=== PATIENT | female | born 1960 | race Caucasian/White ===

== ENCOUNTER 2020-11-09 12:40 | Outpatient (CLI) | payer BC, SELFPAY ==
--- NOTE | 2020-11-09 12:57 | MM_ITS ---
WS: [id number] Bilateral screening digital mammogram, 11/09/2020 Clinical Data: SCREEN Comparison: None. Findings: The breast parenchymal pattern shows heterogeneous density No spiculated masses or clustered calcific ations are seen. There are no secondary signs of carcinoma. MM/[id number] Impression: 1. Negative bilateral mammogram unchanged. 2. Recommend annual screening mammograms. BIRADS: 1-Negative FOLLOW UP: 1 Year Follow-up The CAD fitting room checker was used.
== END 2020-11-09 12:41 | disposition home or self-care (01) ==
PROVIDERS: PCP Family Medicine; Visit Provider Family Medicine
DX: Z12.31 Encounter for screening mammogram for malignant neoplasm of breast (principal)
CPT/HCPCS: 77067

== ENCOUNTER → 2021-08-31 09:06 | Outpatient (BNVA) | payer BC, SELFPAY | PROVIDERS: PCP Family Medicine; Visit Provider Obstetrics & Gynecology | DX: N39.3 Stress incontinence (female) (male) (principal); N81.9 Female genital prolapse, unspecified; Z20.822 Contact with and (suspected) exposure to COVID-19 | CPT/HCPCS: 87635 ==

== ENCOUNTER 2021-09-05 10:50 | Observation (INO) | payer BC, SELFPAY ==
[2021-08-31 10:30] VITALS: BMI 21.1
--- NOTE | 2021-08-31 10:53 | ANES.PREANE2 ---
Pre-Anesthetic Assessment Pre-Anesthetic Assessment: Height/Weight: Height 1.7 m Weight 61.235 kg Proposed Procedure: Operation Date: 09/05/21 12:00 Proposed Procedures p Sacrospinous Ligament Suspension 51689 [id number] N39.3 N81.9(Not Applicable) - Tahir Navarrete MD s Sling(Not Applicable) - Tahir Navarrete MD s Perineorrhaphy(Not Applicable) - Tahir Navarrete MD Was Beta Parker taken within 24 hours: N/A Was Clonidine taken within 24 hours: N/A Social: Social History: No alcohol and No tobacco Exam: Pre-Anes Outpt Exam: alert, oriented x 3, clear to auscultation bilaterally and regular rate & rhythm Airway: Submandibular: WNL Cervical ROM: WNL MP: 2 Dentition: Full History/ROS: No significant history except as noted Anesthetic Plan: ASA status: 1 Anesthesia: General Risk of > 500 ml blood loss (7ml/kg in children): No PFSH Anesthesia PFSH: Medical History No pertinent past medical history Surgical History H/O right knee surgery H/O: hysterectomy Family History Father Diabetes Stroke Denies family history of CAD (coronary artery disease) Clotting disorder Hyperlipidemia Chronic kidney disease (CKD) Bleeding disorder Cancer Hypertension Thyroid disease Data Anesthesia Cardiac Studies: No Data to Display
[2021-08-31 11:04] LABS: Basophils # 0.1 10^3/uL (0.0-0.1); Basophils % 0.8 %; Eosinophils % 0.6 %; Hematocrit 40.1 % (37.0-47.0); Hemoglobin 13.3 g/dL (11.5-15.3); Lymphocytes # 1.5 10^3/uL (0.8-4.8); Lymphocytes % 22.6 %; Mean Corpuscular HGB Conc 33.2 g/dL (30.0-36.0); Mean Corpuscular Hemoglobin 31.3 pg (28.0-34.0); Mean Corpuscular Volume 94.4 fl (81-99); Monocytes # 0.5 10^3/uL (0.2-0.9); Monocytes % 7.2 %; Neutrophils # 4.54 10^3/uL (1.8-7.7); Neutrophils % 68.5 %; Nucleated Red Blood Cells % 0 %; Platelet Count 307 10^3/cmm (130-400); Red Blood Count 4.25 10^6/uL (4.1-5.3); Red Cell Distribution Width 13.2 % (12.1-15.1); White Blood Count 6.6 10^3/uL (4.0-10.0)
[2021-08-31 11:18] LABS: Anion Gap 19.2 (5-19); Blood Urea Nitrogen 6 mg/dL (8-23); Calcium 9.9 mg/dL (8.5-10.5); Carbon Dioxide 24 mmol/L (22-29); Chloride 94 mmol/L (98-107); Glomerular Filtration Rate 162.8 mL/min (90-130); Glucose 82 mg/dL (65-115); Osmolality Calculated 273 mOsm/kg (285-295); Potassium 4.2 mmol/L (3.5-5.1); Sodium 133 mmol/L (136-145)
[2021-09-05] VITALS (14 sets, daily range): BP systolic 131–156; BP diastolic 80–119; PULSE 83–109; RESP 9–18; TEMP 36.2–37.1; O2SAT 95–98
[2021-09-05] MEDS: sodium chloride 0.9% 500 ML IV (07:39)
[2021-09-05] MEDS: scopolamine 1.5 Patch 1 PATCH TRANSDERMA (07:49)
[2021-09-05 07:53] LABS: Basophils % 0.8 %; Eosinophils # 0.2 10^3/uL (0.0-0.8); Eosinophils % 3.4 %; Hematocrit 40.4 % (37.0-47.0); Hemoglobin 13.1 g/dL (11.5-15.3); Lymphocytes # 1.7 10^3/uL (0.8-4.8); Lymphocytes % 34.7 %; Mean Corpuscular HGB Conc 32.4 g/dL (30.0-36.0); Mean Corpuscular Hemoglobin 31.1 pg (28.0-34.0); Mean Platelet Volume 10.1 fL (7.4-10.4); Monocytes # 0.5 10^3/uL (0.2-0.9); Monocytes % 9.8 %; Neutrophils # 2.53 10^3/uL (1.8-7.7); Neutrophils % 50.9 %; Nucleated Red Blood Cells % 0 %; Platelet Count 291 10^3/cmm (130-400); Red Blood Count 4.21 10^6/uL (4.1-5.3); Red Cell Distribution Width 13.1 % (12.1-15.1)
[2021-09-05] MEDS: sodium chloride 0.9% 1,000 ML 30 ML IV ×2 (08:04→11:41)
--- NOTE | 2021-09-05 08:05 | P.ANESUD_ITS ---
Pre-Anesthetic Update Pre-Anesthetic Assessment: Date of Surgery/Procedure: 09/05/21 Preop Victorina gnosis: Vaginal prolapse stage III, stress urinary incontinence, cystocele stage II Proposed Procedure: Operation Date: 09/05/21 08:35 Proposed Procedures p Sacrospinous Ligament Suspension 28087 [id number] 63014 N39.3 N81.9(Not Applicable) - Tahir Navarrete MD s Sling(Not Applicable) - Tahir Navarrete MD s Perineorrhaphy(Not Applicable) - Tahir Navarrete MD Any changes to Pre-Anesthetic Assessment?: No Last Intake: Intake Last Liquid Date 09/04/21 Last Liquid Time 21:45 Last Solid Date 09/04/21 Last Solid Time 19:30 Labs Last 48hrs: Laboratory Results - last 48 hr 09/05/21 07:30 WBC 5.0 RBC 4.21 Hgb 13.1 Hct 40.4 MCV 96.0 MCH 31.1 MCHC 32.4 RDW 13.1 Plt Count 291 MPV 10.1 Neut % (Auto) 50.9 Lymph % (Auto) 34.7 Collier % (Auto) 9.8 Eos % (Auto) 3.4 Baso % (Auto) 0.8 Neut # (Auto) 2.53 Lymph # (Auto) 1.7 Collier # (Auto) 0.5 Eos # (Auto) 0.2 Baso # (Auto) 0.0 Nucleated RBC % (a uto) 0 Nucleated RBCs # 0.0 Vitals: Temperature 97.2 F L 09/05/21 07:11 Temperature Source Oral 09/05/21 07:11 Pulse Rate 88 09/05/21 07:11 Respiratory Rate 16 09/05/21 07:11 Blood Pressure 150/119 09/05/21 07:11 Blood Pressure Nelida n 129 09/05/21 07:11 Pulse Oximetry 98 09/05/21 07:11 Oxygen Delivery Me thod 09/05/21 07:11 Exam: Pre-Anes Outpt Exam: alert, oriented x 3, clear to auscultation bilaterally and regular rate & rhythm Cardiac Studies: No Data to Display
[2021-09-05] MEDS: midazolam 1 mg/mL INJ 2 mL 2 MG IVP (08:11)
[2021-09-05 08:17] LABS: Alanine Aminotransferase 19 U/L (0-33); Albumin Level 4.5 g/dL (3.5-5.2); Alkaline Phosphatase 56 IU/L (35-105); Anion Gap 16.1 (5-19); Aspartate Amino Transferase 21 U/L (0-32); Blood Urea Nitrogen 11 mg/dL (8-23); Calcium 9.9 mg/dL (8.5-10.5); Carbon Dioxide 25 mmol/L (22-29); Chloride 102 mmol/L (98-107); Creatinine Clr Calc Pharmacy 116.0798; Glomerular Filtration Rate 125.9 mL/min (90-130); Glucose 113 mg/dL (65-115); Osmolality Calculated 288 mOsm/kg (285-295); Potassium 4.1 mmol/L (3.5-5.1); Sodium 139 mmol/L (136-145); Total Bilirubin 0.3 mg/dL (0.15-1.2); Total Protein 7.5 g/dL (6.6-8.7)
--- NOTE | 2021-09-05 08:51 | W.PM.OPSUD ---
Surgery/Procedure H&P Update DATE OF PROCEDURE: September 05, 2021 DATE H&P PERFORMED: 08/31/21 H&P UPDATE INFORMATION: I have reviewed H&P completed within last 30 days, I have examined patient prior to procedure and No changes to prior documentation PREOP DIAGNOSIS: Vaginal prolapse stage III, stress urinary incontinence, cystocele stage II PLANNED PROCEDURE: Operation Date: 09/05/21 08:35 Proposed Procedures p Sacrospinous Ligament Suspension 28784 [id number] 51456 N39.3 N81.9(Not Applicable) - Tahir Navarrete MD s Sling(Not Applicable) - Tahir Navarrete MD s Perineorrhaphy(Not Applicable) - Tahir Navarrete MD
[2021-09-05] MEDS: estrogens Conjugated Cream 30 gm 1 APPLIC VAGINAL (10:49)
--- NOTE | 2021-09-05 11:02 | P.OP_ITS ---
Operative Report Date of procedure: September 05, 2021 Pre-op Diagnosis: Vaginal prolapse stage III, stress urinary incontinence, cystocele stage II Post-op diagnosis: same Procedure Done: Anterior colporrhaphy augmented with allograft. Single incision midurethral sling. Posterior colporrhaphy. Sacrospinous fixation. Cystoscopy. Specimens removed/disposition: none Pathology: none sent Surgeon: Tahir Navarrete MD Anesthesia: General Estimated blood loss (mL): 75 IV fluids (mL): 800 Urine output (mL): 500 Condition: stable Disposition: PACU Procedure: After obtaining informed consent, the patient was taken to the operating room and placed in the supine position, given general anesthesia, and prepped and draped in sterile fashion. The abdomen, vulva and vagina were prepped and draped in a sterile manner. A time out procedure was performed. The anterior vaginal mucosa beneath the midurethra was infiltrated with 0.5% Marcaine with epinephrine. A vertical midline incision was made beneath the midurethra, nearly 1.5 cm length. Careful submucosal dissection was performed bilaterally up to the interior portion of the inferior pubic ramus. The insertion of adductor longus tendon on the patient?s pubic ramus was identified as reference land maya. Palpated the notch along the internal edge of ischiopubic ramus where the adductor longus tendon and the inferior pubic ramus meet. The Altis single incision sling (SIS) was selected. Then the needle of the SIS inserted aiming at the location of this notch. One of the integrated self- fixating tips place onto the needle by sliding it over the end of the needle. The needle/sling assembly was inserted toward the location of identified reference notch making sure that the flat of the handle is perpendicular to the desired path. The needle was tracked along the posterior surface of the ischiopubic ramus until the midline maya on the mesh is approximately at the midline position under the urethra. The needle was removed and the same was repeated on the contralateral side until the appropriate sling tension under the urethra was achieved ensuring that the mesh lays flat. The needle was removed and vaginal incision was closed in a running interlocking fashion with 2-0 Vicryl. The vaginal mucosa was then injected in the midline with normal saline. The vagi nal mucosa was scored in the midline with the Bovie approximately 1 cm medial to the urethral meatus to 1 cm distal to the vaginal cuff. This vaginal mucosa was then undermined and then incised in the midline with the Metzenbaum scissors. The lateral aspects of the vaginal mucosa were then grasped with the Allis clamps and the vaginal mucosa was then dissected off the underlying fascia with the Metzenbaum scissors. Again, there was noted to be quite a bit of oozing at the incision, which was controlled with cautery. After adequate dissection was performed, bilaterally. A Coloplast allogarft is modified at time of application to fit spacea, 3 x 4 cm piece . The Coloplast allogarft placed in front of cystocele ready to be implanted with the Basement Membrane facing the vagina mucosa. Suture is placed at distal end of graft and placed towards vaginal cuff. Final suture is placed on proximal portion of the graft to complete the placement overlying the bladder. Then Interrupted vertical mattress sutures of 0 Vicryl were used to elevate the cystocele superiorly. The excessive vaginal mucosa was then trimmed with the Metzenbaum scissors and the vaginal mucosa was then reapproximated in the running interlocking fashion with 2-0 Vicryl. The posterior vaginal mucosa is opened in the routine fashion as described previously in Posterior Repair. A finger is inserted through the incision in the posterior vaginal mucosa, dissecting out the rectovaginal space (RVS). The right rectal pillar (RRP) is identified. The rectal pillar can be bluntly perforated either with the finger or with the tip of a long Petra clamp. A Breisky-Navratil retractor is used for exposing the rectovaginal space in order to enter the pararectal space with retraction of the cardinal ligament, vagina, and rectum. Displacing the rectum to the left and the cardinal ligament and ureter anteriorly. A sponge dissector is used to bluntly dissect the sacrospinous ligament removing areolar tissue. The ischial spine was palpated directly, and a area approximately 2 cm medial to the spine was selected for insertion of the Anchorsure transvaginal sacrospinous fixation system. One end of the suture of Anchoresure system inserted through the sacrospinous ligament is placed through the muscular layer of the vagina. In a similar manner, the second suture is placed. The opposite end of the suture in the sacrospinous ligament is left free and held on a small hemostat. Then traction on this suture will draw the vaginal vault directly to the ligament, where a square knot affixes it to the sacrospinous ligament. After the kassy stich is tied the second safety stich is tied. Then the colporrhaphy/vaginal repair is carried out in routine fashion. An incision was made across the introitus. Metzenbaum scissors were used to tunnel beneath posterior vaginal mucosa until the apex of the rectocele bulge was reached. At this point, the rectum was from the posterior vaginal mucosa using sharp and blunt dissection, and the rectal bulge imbricated in the midline with interrupted sutures of 2-0 vicryl suture. Levator ani muscles on either side were approximated in the midline with interrupted 0 Vicryl sutures. Excess posterior vaginal mucosa was excised, and the vaginal episiotomy was repaired by approximating the posterior vaginal mucosa with a suture of Vicryl #0. Then the Nash catheter was removed and cystoscope was inserted. The bladder was filled with sterile water. Complete evaluation of the bladder mucosa was performed noting no lacerations, dimpling, tears, bleeding of the mucosa or muscular layers. Both ureteral orifices were identified. Prompt excretion of urine from both ureteral orifices was noted. Cystoscope was withdrawn. The Nash catheter was replaced. Excellent hemostasis was obtained. A vaginal pack is placed overnight as postoperative support for the vaginal tissues after graft placement and closure of vaginal incisions. Sponge, lap, needle, and instrument counts were correct times three. The patient was taken to the recovery room, awake and in stable condition.
[2021-09-05] MEDS: ketorolac 30 mg/mL INJ IVP ×2 (12:23→18:14)
--- NOTE | 2021-09-05 14:41 | ANE.PACU2 ---
Inpatient post-anesthesia follow up: Airway intact: Yes Vital signs: Temperature 97.9 F Pulse Rate 90 Respiratory Rate 16 Blood Pressure 150/101 Pulse Oximetry 96 Oxygen Delivery Me thod Room Air Oxygen Flow Rate 8 Fraction of Inspir ed Oxygen Hydration adequate: Yes Nausea and vomiting: No Pain level: 2 Mental status: Baseline
[2021-09-05] MEDS: docusate sodium 100 mg Capsule PO (18:14)
[2021-09-05] MEDS: dextrose 5%-lactated ringers 1,000 ML 125 ML IV (18:27)
[2021-09-05] MEDS: HYDROcodone-acetaminophen 5-325 mg Tablet PO (23:54)
[2021-09-06 04:52] VITALS: BP 125/83; PULSE 75; RESP 17; TEMP 36.7; O2SAT 97
--- NOTE | 2021-09-06 05:01 | PC.NURSE ---
Vaginal packing removed at 0437. All packing intact after removal. Patient tolerated well.
--- NOTE | 2021-09-06 05:02 | PC.NURSE ---
Vaginal packing removed at 0451. All packing intact. Patient tolerated well.
[2021-09-06 05:12] LABS: Hematocrit 29.7 % (37.0-47.0); Hemoglobin 9.9 g/dL (11.5-15.3); Mean Corpuscular HGB Conc 33.3 g/dL (30.0-36.0); Mean Corpuscular Hemoglobin 31.7 pg (28.0-34.0); Mean Corpuscular Volume 95.2 fl (81-99); Mean Platelet Volume 10.5 fL (7.4-10.4); Platelet Count 230 10^3/cmm (130-400); Red Blood Count 3.12 10^6/uL (4.1-5.3); Red Cell Distribution Width 13.2 % (12.1-15.1)
[2021-09-06] MEDS: HYDROcodone-acetaminophen 5-325 mg Tablet PO (08:10)
[2021-09-06] MEDS: docusate sodium 100 mg Capsule PO (08:11)
--- NOTE | 2021-09-06 10:37 | PM.OBGYDC ---
Discharge Providers AVIATION SAFETY EQUIPMENT TECHNICIAN Date of Admission: 09/05/21 10:50 Date of Discharge: 09/06/21 Attending Provider at Admission: Tahir Navarrete MD Attending Provider at Discharge: Tahir Navarrete MD Primary Care Provider: Spencer Hayes MD Reason for Visit Reason for Visit: stress urinary incontinence Hospital Course Hospital Course Mrs. Wagoner 60-year-old female with vaginal prolapse and stress urinary incontinence admitted for anterior colporrhaphy augmented with allograft, single incision sling, posterior colporrhaphy and sacrospinous fixation. The procedures were performed without complications. She is postoperative day 1, afebrile and hemodynamically stable. Ambulating without difficulty. Tolerating diet well. Urine output within normal limits. PVR within normal limits. Passing flatus. Overnight observation was uneventful. Physical Exam Narrative: EXAM NARRATIVE: GA: Alert and oriented ?3. HEENT: WNL. Heart: Regular rate and rhythm. Lungs: Clear to auscultation bilaterally. Abdomen: Bowel sounds present, nontender. OBJECT ORIENTED DEVELOPER: Spotting. Mildly tender when Coughing. Extremities: No edema, no cyanosis, no calves pain. Urinary Catheter Management^: Nash: Cath Placed During This Visit: yes Urinary Catheter Date of Insertion: 09/05/21 Urinary Catheter Time of Insertion: 09:21 History History History 4 Term 3 Miscarriages/Ectopic 1 0 Living Children 3 Discharge Data Data Completed and Pending: Labs from last 24 hours 09/06/21 04:56 WBC 8.0 RBC 3.12 L Hgb 9.9 L Hct 29.7 L MCV 95.2 MCH 31.7 MCHC 33.3 RDW 13.2 Plt Count 230 MPV 10.5 H Vitals: Last Vital Signs Temp 98.0 F 09/06/21 04:52 Pulse 75 09/06/21 04:52 Resp 17 09/06/21 04:52 BP 125/83 09/06/21 04:52 Pulse Ox 97 09/06/21 04:52 Discharge Plan Discharge Patient Disposition: Home Condition: Stable Prescriptions: New ibuprofen 800 mg tablet 800 mg PO TID PRN (Reason: pain) Qty: 60 RF: 0 hydrocodone-acetaminophen 5-325 mg tablet 1 tab PO Q4H PRN (Reason: pain) Qty: 20 RF: 0 Iron (ferrous sulfate) 325 mg (65 mg iron) tablet 325 mg PO BID Qty: 60 RF: 3 Colace 100 mg capsule 100 mg PO BID Qty: 60 RF: 3 acetaminophen 325 mg capsule 325 mg PO Q4H PRN (Reason: fever or pain) Qty: 60 RF: 0 Discharge Orders: Discharge Order (Routine); Ordered 09/06/21 Ordered By: Tahir Navarrete Referrals: Tahir Navarrete MD [Physician] - 09/18/21 3:45 pm (Your 2 week post-op appointment is scheduled for 09/18/21 @3:45. Your 6 week post-op appointment is scheduled for 10/15/21 @2:00. ) Discharge Diet: Soft Mechanical Discharge Activity: Increase activity as tolerated Patient Instructions: Opioid Safety (DC), Anterior Vaginal Repair (DC), Posterior Vaginal Repair (GEN), OB Discharge Report, OB Food/Drug Interaction Guide, Opioid Safety Activity Restrictions/Additional Instructions: 1. Please call [facility] on next working day to make your post-operative appointment in 2 weeks. 2. Please stay home until you come back to the clinic on first post-operative check up. 3. Please follow instructions on your medications CAREFULLY. 4. If you have abdominal incision, do not cover it unless dressing is necessary because of drainage. OK to shower, but avoid bath. Leave steri-strips until they fall off. If they are still on one week after surgery, you may remove them. 5. If you had vaginal surgery or vaginal repair, Dr. Navarrete may instruct you to take SITZ bath. 6. Yellow, blood tinged odorous vaginal discharge is usually normal after hysterectomy or vaginal surgeries. 7. No sexual intercourse, tampons, or douches until you are completely released from the post-operative care. 8. Avoid constipation by eating right and maybe using some Metamucil or Milk of Magnesia. 9. All prescription refills are given during the working hours. Please do no wait till it runs out. Call the clinic at [phone] before your medication runs out. The clinic will get in touch with your doctor to prescribe medications if necessary. 10. Please remain within 40 mile radius from our hospital because emergencies do happen now and then during the post-operative period. 11. If you have stairs at home, take one step at a time slowly and minimize the number of trips. It helps to stay in one floor for the next few days. No lifting except what you can lift by one hand until you are released from the post-operative care. 12. Driving is discouraged until you are well healed. It may be 3-4 weeks before you feel strong enough to drive. You should be able to turn and look through the rear window without pain and you should be able to push the brake pedal very hard without pain before you drive. No fast rules, but SAFETY should be your primary concern. DO NOT drive if you are on sedating medications such as narcotics. 13. Call the clinic (during working hours) to make urgent appointment or go to the Emergency room, if any of the following occurs: i. Vaginal bleeding becomes heavy, more than a period. ii. Incision becomes red and sore, or drains pus. iii. Your temperature is over 100.4 or you have chill. iv. IV site becomes red and swollen (a little ``knot?? is usually OK) v. Persistent nausea and vomiting vi. Persistent constipation or diarrhea vii. Rash or allergic reaction to medications. Discharge Attestations AVIATION SAFETY EQUIPMENT TECHNICIAN Time Spent in Discharge Care*: greater than 30 min Coding Level of Care Code Acute Cheese Supervisor for Yas Bundy
[2021-09-06 10:45] VITALS: BP 138/88; PULSE 59; RESP 18; TEMP 36.6
[2021-09-06 10:50] VITALS: BP 138/88; PULSE 59; RESP 18; TEMP 36.6
== END 2021-09-06 10:55 | disposition home or self-care (01) ==
LOC: OBGYN 10:53
PROVIDERS: Student in an Organized Health Care Education/Training Program; Admitting Provider Obstetrics & Gynecology; PCP Family Medicine; Visit Provider Obstetrics & Gynecology
PROC: (CPT 57282; principal; 2021-09-05 08:35)
PROC: (CPT 57288; 2021-09-05 08:35)
PROC: 0HQ9XZZ Repair Perineum Skin, External Approach (ICD-10-PCS; CPT 57260; 2021-09-05 08:35)
DX: N39.3 Stress incontinence (female) (male) (principal); N99.3 Prolapse of vaginal vault after hysterectomy; Z90.710 Acquired absence of both cervix and uterus
CPT/HCPCS: 57260; 57267; 57282; 57288; 36415; 51798; 80048; 80053; 85025; 85027; 96365; C1713; C1762; G0378; J0690; J1100; J1885; J2250; J2405; J2704; J3010; J3490; J7030; J7040

== ENCOUNTER 2022-01-23 14:06 | Outpatient (CLI) | payer BC, SELFPAY ==
--- NOTE | 2022-01-23 14:13 | MM_ITS ---
WS: [id number] SCREENING 3D TOMOSYNTHESIS DIGITAL MAMMOGRAM WITH CAD HISTORY: SCREENING COMPARISON: 11/09/2020 Bilateral CC and MLO views submitted. Computer aided detection analyzed. Breast composition: The breasts are heterogeneously dense, which may obscure small masses. Seen on th e LEFT MLO projection is an 8 mm asymmetry seen in the posterior inferior breast which needs further evaluation. Otherwise no additional change. MM/[place] [id number] IMPRESSION: BI-RADS: 0-Incomplete: Need additional imaging evaluation FOLLOW UP: Need Additional Imaging LEFT breast: Spot compression view MLO). Exaggerated medial and lateral CC view s. True ML. Ultrasound to follow if abnormality persists.
== END 2022-01-23 14:07 | disposition home or self-care (01) ==
LOC: RADSHAW 14:08
PROVIDERS: PCP Family Medicine; Visit Provider Obstetrics & Gynecology
DX: Z12.31 Encounter for screening mammogram for malignant neoplasm of breast (principal)
CPT/HCPCS: 77063; 77067

== ENCOUNTER 2022-02-13 14:20 | Outpatient (CLI) | payer BC, SELFPAY ==
--- NOTE | 2022-02-13 14:42 | MM_ITS ---
WS: [id number] ADDITIONAL VIEWS LEFT DIGITAL MAMMOGRAM WITH CAD and 3-D. HISTORY: ABNORMAL MAMMOGRAM;LT ASYMMETRY COMPARISON: 01/23/2022, 11/09/2020 Technique: Exaggerated CC and spot compression MLO. Breast composition: The asymmetry seen on the screening mammogram in the posterior LEFT breast resolv es with additional imaging. No additional abnormalities are identified. MM/[id number] IMPRESSION: BI-RADS: 2-Benign FOLLOW UP: 1 Year Follow-up
== END 2022-02-13 14:21 | disposition home or self-care (01) ==
PROVIDERS: PCP Family Medicine; Visit Provider Obstetrics & Gynecology
DX: R92.8 Other abnormal and inconclusive findings on diagnostic imaging of breast (principal)
CPT/HCPCS: 77061

== ENCOUNTER → 2022-07-11 13:22 | Outpatient (BNVA) | payer BC, SELFPAY | PROVIDERS: Visit Provider Family Medicine | DX: Z76.89 Persons encountering health services in other specified circumstances (principal) | CPT/HCPCS: 80053; 80061; 85025 ==

== ENCOUNTER 2023-02-26 14:45 | Outpatient (CLI) | payer BC, SELFPAY ==
--- NOTE | 2023-02-26 14:51 | MM_ITS ---
WS: [id number] BILATERAL 3D TOMOSYNTHESIS DIGITAL SCREENING MAMMOGRAPHY WITH CAD CLINICAL INFORMATION: SCREENING HISTORY: Screening mammogram. No current complaints. COMPARISON: January 23, 2022 TECHNIQUE: Bilateral CC and MLO views. FINDINGS: The breasts are composed of heterogeneous fibroglandular density tissue, which can limit the detectio n of small underlying mass lesions. No suspicious mass, asymmetry, calcifications, or architectural d istortion. No evidence of malignancy. MM/[place] [id number] IMPRESSION: BI-RADS: 1-Negative FOLLOW UP: 1 Year Follow-up Recommend return to annual screening mammography.
== END 2023-02-26 14:46 | disposition home or self-care (01) ==
PROVIDERS: PCP Family Medicine; Visit Provider Obstetrics & Gynecology
DX: Z12.31 Encounter for screening mammogram for malignant neoplasm of breast (principal)
CPT/HCPCS: 77063; 77067

== ENCOUNTER → 2023-06-30 13:20 | Outpatient (BNVA) | payer BC, SELFPAY | PROVIDERS: PCP Family Medicine; Visit Provider Family Medicine | DX: Z00.00 Encounter for general adult medical examination without abnormal findings (principal) | CPT/HCPCS: 80053; 80061; 84443; 85025 ==

== ENCOUNTER 2024-03-01 14:46 | Outpatient (CLI) | payer BC, SELFPAY ==
--- NOTE | 2024-03-01 14:53 | MM_ITS ---
WS: [id number] BILATERAL SCREENING DIGITAL TOMOSYNTHESIS MAMMOGRAM WITH CAD HISTORY: SCREENING COMPARISON: 02/26/2023, 02/13/2022, 01/23/2022 Bilateral CC and MLO views with tomosynthesis and synthetic mammography submitted. Computer aided det ection analyzed. Breast composition: The breasts are heterogeneously dense, which may obscure small masses. No suspici ous masses, microcalcifications or architectural distortion. Stable asymmetries. MM/[place] [id number] IMPRESSION: BI-RADS: 2-Benign FOLLOW UP: 1 Year Follow-up
== END 2024-03-01 14:47 | disposition home or self-care (01) ==
LOC: RAD 14:47
PROVIDERS: PCP Family Medicine; Visit Provider Obstetrics & Gynecology
DX: Z12.31 Encounter for screening mammogram for malignant neoplasm of breast (principal); R92.333 Mammographic heterogeneous density, bilateral breasts
CPT/HCPCS: 77063; 77067

== ENCOUNTER 2025-03-02 13:01 | Outpatient (CLI) | payer BC, SELFPAY ==
--- NOTE | 2025-03-02 13:10 | MM_ITS ---
WS: [id number] BILATERAL 3D TOMOSYNTHESIS DIGITAL SCREENING MAMMOGRAM WITH CAD CLINICAL INFORMATION: SCREENING HISTORY: Screening mammogram. No current complaints. COMPARISON: 2023 TECHNIQUE: Bilateral CC and MLO. FINDINGS: The breast are composed of extremely dense tissue, which can limit the detection of small underlying mass lesions. No suspicious focal mass, asymmetry, calcifications, or architectural distortion. No evidence of malignancy. MM/MM scr tomosynthesis [id number] IMPRESSION: DENSITY: The breasts are heterogeneously dense, which may obscure small masses. BI-RADS: 1 - Negative FOLLOW UP: 1 Year Follow-up Recommend return to annual screening mammography.
== END 2025-03-02 13:02 | disposition home or self-care (01) ==
PROVIDERS: PCP Family Medicine; Visit Provider Obstetrics & Gynecology
DX: Z12.31 Encounter for screening mammogram for malignant neoplasm of breast (principal); R92.343 Mammographic extreme density, bilateral breasts
CPT/HCPCS: 77063; 77067